=== PATIENT | female | born 1965 | race African-American/Black ===

== ENCOUNTER → 2020-12-31 08:34 | Outpatient (CLI) | payer MEDICARE, SELFPAY ==
--- NOTE | ~2020-12-31 | XR_ITS ---
XR shoulder RT min 2V 12/31/2020 08:50 Indication: Right shoulder pain for 3 days Procedure: 4 views right shoulder Comparison: No prior studies for comparison. Findings: There is mild osteoarthritis of the acromioclavicular joint. There is a small loose body an terior to the shoulder joint near the coracoid process, likely degenerative. No significant soft tiss ue abnormality. No acute fracture or traumatic malalignment. Impression: 1: Mild osteoarthritis of the right shoulder. Reviewed, dictated and finalized at location B. Impression: 1: Mild osteoarthritis of the right shoulder.
== END ==
PROVIDERS: PCP Emergency Medicine; Visit Provider Emergency Medicine
DX: M25.511 Pain in right shoulder (principal); M19.011 Primary osteoarthritis, right shoulder
CPT/HCPCS: 73030

== ENCOUNTER 2024-08-15 14:21 | Outpatient (CLI) | payer MEDICARE, SELFPAY ==
--- NOTE | ~2024-08-15 | XR_ITS ---
EXAMINATION: XR chest 2V 08/15/2024 14:50 INDICATION: Cough PROCEDURE: 2 view chest COMPARISON: No prior studies for comparison. FINDINGS: The lungs are clear. The cardiomediastinal silhouette is within normal limits. There are no pleural effusions. There is no pneumothorax suspected. IMPRESSION: 1: NO ACUTE CARDIOPULMONARY DISEASE. Reviewed, dictated and finalized at location B. [employer]
--- NOTE | ~2024-08-15 | XR_ITS ---
Left Humerus Technique: AP and lateral views were obtained. Clinical History: Pain Findings: No fracture or dislocation is seen. Osseous alignment is anatomic. Visualized joint spaces are grossly preserved. Soft tissues are unremarkable. Impression: Unremarkable examination. No fracture or dislocation. Reviewed, dictated and finalized at location . [employer] Impression: Unremarkable examination. No fracture or dislocation.
== END 2024-08-15 14:22 | disposition home or self-care (01) ==
LOC: MICIMG 14:24
PROVIDERS: PCP Emergency Medicine; Visit Provider Emergency Medicine
DX: R05.9 Cough, unspecified (principal); M79.602 Pain in left arm
CPT/HCPCS: 71046; 73060